=== PATIENT | female | born 1935 | race Caucasian/White ===

== ENCOUNTER 2023-07-05 07:02 | Inpatient (IN) | payer MEDICARE, OTHER, SELFPAY ==
--- NOTE | 2023-05-31 12:04 | CM ---
Addendum entered by Sona August 06/29/23 08:05:
Call placed to Tamela at [facility]. She confirmed that they will have a bed for patient in [facility] (their personal care). She states that [facility] is on site and will provide PT and OT to patient (a script will be needed for this). She
states no need to fax discharge instructions or med list but RN should call report.
Report: [phone]
Addendum entered by Sona August 06/01/23 10:33:
Spoke with Yulia in [facility] ([phone]). She confirmed that they will have a bed for patient in their personal care after surgery. She states that navigator should contact Tamela in admissions to [facility] ([phone]).
Original Note:
Patient is scheduled for an elective L TKR on 07/05/23. Spoke with patient prior to surgery via telephone. Patient had a R TKR at in 2020. Reintroduced role of Orthopedic Navigator. Patient reports that she lives alone in an independent living
apartment at [facility]. She currently functions independently. She has a cane and rolling walker. She has never had VN services. PCP is Dr. Marcus Howe.
Discussed orthopedic program and post surgical plans. Reviewed anticipated length of stay and discussed discharge plans. Patient is in agreement with tentative plan and will go to [facility]'s personal care facility. She has already
notified [facility] and they confirm that they will have a bed for her.
Patient will complete online education.
Plan: Orthopedic Navigator will remain available to assist with the care of patient and will reassess discharge needs after surgery.
[2023-06-12 12:52] VITALS: BMI 23.0
[2023-06-12 13:48] LABS: Hematocrit 37.7 % (37.0-47.0); Hemoglobin 13.5 g/dL (12.0-16.0); Mean Corp Hgb Conc. 35.8 g/dL (33.0-37.0); Mean Corpuscular Hgb 30.4 pg (27.0-31.0); Mean Corpuscular Volume 84.9 fL (81.0-99.0); Mean Platelet Volume 8.9 fL (7.4-10.4); Platelet Count 340 10^3/uL (130-400); Red Blood Cell Count 4.44 10^6/uL (4.20-5.40); Red Cell Dist. Width 13.5 % (11.5-14.5); White Blood Cell Count 5.9 10^3/uL (4.8-10.8)
[2023-06-12 15:06] LABS: ALT (SGPT) 16 U/L (0-35); AST (SGOT) 28 U/L (14-36); Albumin 4.1 g/dl (3.5-5.0); Alkaline Phosphatase 80 U/L (38-126); Blood Urea Nitrogen 21 mg/dl (7-17); Calcium 9.7 mg/dl (8.4-10.2); Carbon Dioxide 29 mmol/L (22-30); Chloride 101 mmol/L (98-107); Direct Bilirubin 0.2 mg/dl (0.0-0.4); Estimated Creatinine Clearance 42 ml/min; Glucose 96 mg/dl (70-99); HDL Cholesterol 90 mg/dl; LDL Cholesterol, Calculated 58 mg/dl; Potassium 4.1 mmol/L (3.5-5.1); Sodium 137 mmol/L (135-145); Total Bilirubin 0.6 mg/dl (0.2-1.3); Total Cholesterol 164 mg/dl (50-199); Total Protein 7.2 g/dl (6.3-8.2); Triglyceride 84 mg/dl (10-149); Very Low Density Lipoprotein 16 mg/dl (0-30); eGFR > 60.00
[2023-06-12 15:09] VITALS: BMI 23.0
[2023-06-13 09:22] LABS: Glycohemoglobin (HgbA1c) 5.5 % (4.0-5.6)
[2023-07-05] VITALS (17 sets, daily range): BP systolic 100–163; BP diastolic 53–115; PULSE 91; O2SAT 98; BMI 21.6; BMI 23.0
[2023-07-05] MEDS: CELEBREX 200 MG PO (07:34)
[2023-07-05] MEDS: TYLENOL 650 MG PO ×5 (07:34→23:37)
[2023-07-05] MEDS: NORMOSOL-R 1000 IV ×2 (07:51→10:12)
[2023-07-05] MEDS: ROXICODONE 5 MG PO ×2 (10:12→14:17)
[2023-07-05] MEDS: DILAUDID 0.25 MG IV ×2 (10:22→10:45)
[2023-07-05] MEDS: ZOFRAN 4 MG IV (10:22)
--- NOTE | 2023-07-05 12:00 | PTCARENOTE ---
pt admitted to room 2103 at 1120. pt oriented to room, bed controls, plan of care with verbalized understanding. admission database and assessment completed as documented. Left knee dressing clean and dry. will observe.
[2023-07-05] MEDS: TYLENOL PO (12:24)
[2023-07-05] MEDS: TORADOL 15 MG IV ×2 (13:02→20:35)
[2023-07-05] MEDS: ANCEF 5 IV ×2 (16:15→23:37)
[2023-07-05] MEDS: LIPITOR 10 MG PO (17:11)
[2023-07-05] MEDS: ASPIRIN 325 MG PO (17:11)
[2023-07-05] MEDS: BACTROBAN 2% OINTMENT 1 APPLIC NASAL (20:35)
[2023-07-05] MEDS: COLACE 100 MG PO (20:35)
[2023-07-05] MEDS: DECADRON 4 MG PO (20:35)
[2023-07-05] MEDS: SENOKOT 17.1999999999999993 MG PO (20:35)
[2023-07-05] MEDS: ROXICODONE 2.5 MG PO (20:36)
[2023-07-05] MEDS: NEURONTIN 300 MG PO (21:10)
[2023-07-05] MEDS: PEPCID 20 MG PO (21:10)
[2023-07-06] MEDS: ROXICODONE 5 MG PO (01:20)
[2023-07-06 02:49] VITALS: BP 145/83
[2023-07-06] MEDS: TYLENOL 650 MG PO ×2 (04:38→09:05)
[2023-07-06] MEDS: ROXICODONE 2.5 MG PO ×2 (06:12→11:44)
[2023-07-06 07:00] VITALS: BMI 22.2
--- NOTE | 2023-07-06 07:54 | W.DS.TRANS ---
DC Summary - [employer] Supervisor
-
Discharge Instructions:
Sleep Apnea Risk Low
Discharge Diagnosis/Procedures L KYLEIGH Goldstein 07/05/23
Diet As tolerated
Activity With Walker
Driving Restrictions No driving
Bathing Restrictions OK to Shower
Other Services PT
Instructions:
Stand-Alone Forms: Total Hip/Knee Replacement D/C
Changes to Home Medications: Yes
Discharge Medications:
DC Medications w/original date entered in [employer]
diltiazem HCl 180 mg capsule,extended release 24 hr 180 mg PO DAILY 07/27/20
multivitamin with folic acid 400 mcg tablet (Tab-A-Gracie) 1 tab PO DAILY 07/27/20
prednisolone acetate (PF) 1 % eye drops,suspension 1 drp RIGHT EYE DAILY ##0 07/27/20
simvastatin 10 mg tablet 10 mg PO QPM 07/27/20
coenzyme Q10 50 mg chewable tablet 50 mg PO DAILY ##0 08/20/20
hydrochlorothiazide 12.5 mg tablet 12.5 mg PO DAILY ##0 08/20/20
vitamins A,C,O-mnvp-jvuvan 4,296 mcg-226 mg-90 mg capsule (PreserVision AREDS) 1 cap PO BID ##0 08/20/20
biotin 5 mg tablet 5 mg PO DAILY 06/06/23
calcium carbonate 600 mg-vitamin D3 5 mcg (200 unit) capsule (Calcium 600 + D(3)) 1 cap PO BID 06/06/23
diclofenac sodium 1 % topical gel 2 g topical PRN PRN Neck, shoulder pain 06/06/23
gabapentin 300 mg capsule 300 mg PO HS 06/06/23
omega 5-myv-vck-fish oil 1,000 mg (120 mg-180 mg) capsule (Fish Oil) 1 cap PO BID 06/06/23
timolol maleate (PF) 0.5 % eye drops in a dropperette 1 drp RIGHT EYE DAILY 06/06/23
famotidine 20 mg tablet 20 mg PO HS GI prophylaxis #30 tabs 06/12/23
meloxicam 15 mg tablet 15 mg PO DAILY anti-inflammatory #14 tabs 06/12/23
mupirocin 2 % topical ointment 1 applic topical BID infection prevention #1 tube 06/12/23
oxycodone 5 mg tablet 5 mg PO Q6H PRN 1 tab moderate pain, 2 tabs severe pain #30 tabs 06/12/23
aspirin 325 mg tablet 325 mg PO DAILY blood clot prevention #1 tab 07/06/23
docusate sodium 100 mg capsule (Colace) 100 mg PO BID stool softner #1 cap 07/06/23
magnesium hydroxide 400 mg/5 mL oral suspension (Milk of Magnesia) 30 ml PO HS PRN Constipation #1 mL 07/06/23
sennosides 8.6 mg tablet (Senokot) 17.2 mg (2 x 8.6 mg) PO BID laxative #2 tabs 07/06/23
Home Medication Changes
famotidine 20 mg tablet 20 mg PO HS GI prophylaxis #30 tabs 06/12/23
meloxicam 15 mg tablet 15 mg PO DAILY anti-inflammatory #14 tabs 06/12/23
mupirocin 2 % topical ointment 1 applic topical BID infection prevention #1 tube 06/12/23
oxycodone 5 mg tablet 5 mg PO Q6H PRN 1 tab moderate pain, 2 tabs severe pain #30 tabs 06/12/23
Pending Results: No
--- NOTE | 2023-07-06 08:35 | CM ---
Addendum entered by Sona August 07/06/23 09:59:
Patient did well in therapy. She has no concerns about discharge.
Original Note:
Reviewed chart and held rounds with PT, OT and nursing. Patient admitted as planned for elective L TKR. Met with patient at bedside. Confirmed information previously obtained for assessment. Also discussed discharge plans. The plan is for patient to
go to [facility] (personal care at [place]) at discharge. She will receive outpatient PT and OT services through [facility]. She has an appointment scheduled for Monday, 07/06.
Patient has a rolling walker and cane.
She will use [facility] for discharge prescriptions.
Discharge plans were reviewed with patient's friends on 07/04.
RN to call report to: [phone]
Discharge instructions do not need to be faxed.
[2023-07-06 08:43] VITALS: BP 128/85
[2023-07-06 08:49] VITALS: BP 116/71; BP 131/71; PULSE 114; O2SAT 97
[2023-07-06] MEDS: ASPIRIN 325 MG PO (09:05)
[2023-07-06] MEDS: MOBIC 15 MG PO (09:05)
[2023-07-06] MEDS: SENOKOT 17.1999999999999993 MG PO (09:05)
[2023-07-06] MEDS: COLACE 100 MG PO (09:05)
[2023-07-06] MEDS: PRED FORTE 1% EYE DROPS 1 DROP RIGHT EYE (09:06)
[2023-07-06] MEDS: BACTROBAN 2% OINTMENT 1 APPLIC NASAL (09:06)
[2023-07-06] MEDS: TORADOL 15 MG IV (09:06)
[2023-07-06] MEDS: DECADRON 4 MG PO (09:06)
[2023-07-06 09:36] VITALS: BP 130/70; PULSE 111
--- NOTE | 2023-07-06 09:55 | W.PN.ORTHO ---
Today's Communication / Plan
-
d/c
Assessment
.
Distal Motor Intact: Yes
Dressing:
Clean, dry and intact.
Plan
.
Surgery / Date: Chintan Fernandez 07/05/23
DVT Prophylaxis: Aspirin
Activity:
Out of bed.
PT/OT
Discharge Plan: Other
Subjective
.
.:
Patient resting comfortably.
Vital Signs and Labs
.
Vital Signs and Labs:
Lab Results
06/12/23 12:47
06/12/23 12:47
Temp Pulse Resp BP Pulse Ox
98.3 F 117 22 128/85 94
07/06/23 08:43 07/06/23 08:43 07/06/23 02:49 07/06/23 08:43 07/06/23 08:43
Non-invasive Hgb result: 12.3
Physical Exam
-
HEENT: No pallor, cyanosis, or jaundice. Throat clear.
NECK: Supple. No JVD.
RESPIRATORY: Lungs clear to auscultation.
CVS: S1, S2 normal. RRR.� No murmur, rub or gallop.
ABDOMEN: Soft, non-tender. No distension. BS+/normal.
EXTREMITIES: strength equal, no calf pain with palpation
TEACHER EDUCATION DIRECTOR: AOx3. No focal deficits. unit aid grossly intact
[2023-07-06] MEDS: CARDIZEM 90 MG PO (10:29)
== END 2023-07-06 12:30 | disposition home or self-care (01) | DRG 470 ==
LOC: 2 SOUTH 07:02
PROVIDERS: Internal Medicine Cardiovascular Disease; ADMITTING PHYSICIAN Orthopaedic Surgery; FAMILY PHYSICIAN Family Medicine
PROC: 0SRD0J9 Replacement of Left Knee Joint with Synthetic Substitute, Cemented, Open Approach (ICD-10-PCS; 2023-07-05)
DX: M17.12 Unilateral primary osteoarthritis, left knee (principal); H20.9 Unspecified iridocyclitis; I10 Essential (primary) hypertension; E78.5 Hyperlipidemia, unspecified; K80.20 Calculus of gallbladder without cholecystitis without obstruction; F41.9 Anxiety disorder, unspecified; Z96.651 Presence of right artificial knee joint; Z86.73 Personal history of transient ischemic attack (TIA), and cerebral infarction without residual deficits; Z79.82 Long term (current) use of aspirin
CPT/HCPCS: 36415; 73560; 80053; 80061; 82248; 83036; 85027; 87070; 97110; 97116; 97162; 97166; 97530; 97535; C1713; C1776